=== PATIENT | male | born 1960 | race Caucasian/White ===

== ENCOUNTER 2017-02-15 18:01 | Emergency (ER) | payer MEDICARE, OTHER ==
[~2017-02-15] VITALS: Ht 177.8 cm; Wt 81.6 kg
[2017-02-15 18:07] VITALS: BP 127/70
== END 2017-02-15 18:36 | disposition home or self-care (01) ==
LOC: ER 18:03
DX: Z00.8 Encounter for other general examination (principal); Z12.11 Encounter for screening for malignant neoplasm of colon
CPT/HCPCS: 99281; A4606; Z7502; Z7610